=== PATIENT | female | born 1985 | race Caucasian/White ===

== ENCOUNTER 2017-08-16 05:15 | Day surgery (SDC) | payer OTHER ==
[~2017-08-16] VITALS: Ht 162.6 cm; Wt 122.7 kg
[2017-08-16] VITALS (7 sets, daily range): BP systolic 123–150; BP diastolic 66–96
--- NOTE | ~2017-08-16 | O ---
[facility] [place] [address] OPERATIVE REPORT Name: FRANKKYLIERAHEEL CHATTERJEE Room #: [facility].#: [id number] Admission: 08/16/17 Attend Phys: Jaswinder Brooks MD, F Discharge: 08/18/17 Date of : 81 Report #: [id number] THIS REPORT FOR: //name// CC: Fabienne Dominguez Brooks DATE OF SERVICE: 08/16/2017 SURGEON: Jaswinder Brooks MD [employer] ACCOUNT ASSISTANT: Zahida Vargas MD PREOPERATIVE DIAGNOSES: 1. Morbid obesity (body mass index 47.2). 2. Arthritis. 3. Gastroesophageal reflux disease. 4. Back pain. POSTOPERATIVE DIAGNOSES: 1. Morbid obesity (body mass index 47.2). 2. Hiatal hernia. 3. Arthritis. 4. Gastroesophageal reflux disease. 5. Back pain. PROCEDURES: 1. Laparoscopic sleeve gastrectomy with EGD. 2. Laparoscopic repair of a hiatal hernia with anterior cruroplasty. ANESTHESIA: General anesthesia and local anesthetic. ESTIMATED BLOOD LOSS: 5 mL. SPECIMEN: Lateral stomach. COMPLICATIONS: None appreciated. INDICATIONS FOR PROCEDURE: This is a 32-year-old female patient standing 5 feet 4 inches, weighing 275 pounds at her last visit with a BMI of 47.2. She has had difficulty with her weight for most of her life, worse with adulthood. She has tried numerous weight loss programs and plans including specialized diets, exercise, and tbbi-hoi-wuwponh medications. The most weight she has ever lost is 30-40 pounds with any single modality. Any amount of weight she has lost, she has quickly regained plus additional weight after stopping the modality. She has been cleared from a multidisciplinary standpoint and presents today for laparoscopic sleeve gastrectomy with EGD. [address] [address] OPERATIVE REPORT Name: RAHEEL KEATING Room #: DEP [facility] Reema#: [id number] Admission: 08/16/17 Attend Phys: Jaswinder Brooks MD, F Discharge: 08/18/17 Date of : 81 Report #: [id number] OPERATIVE FINDINGS: On EGD, the patient had a normal-appearing esophagus in GE junction. The stomach and duodenum to the third portion were normal without polyps, masses, diverticula, or ulcers. On retroflexion of the scope within the antrum of the stomach, a small hiatal hernia was visualized. The scope was then straightened and left within the stomach. This would serve as a 34-Tajik bougie. Laparoscopically, the patient had a fatty liver. Her colon and small-bowel in the surrounding area appeared otherwise normal with no other significant pathology seen other than a hiatal hernia. This was amenable to anterior repair with a single suture. The gastric sleeve staple line was located 1 cm lateral to the GE junction, 3 cm lateral to the incisura, and 4 cm lateral/proximal to the pylorus. There was no evidence for staple line leak whereby no air bubbles were seen after insufflating the gastric sleeve immediately after applying Tisseel to the staple line. The excised stomach held 1500 mL of fluid. DESCRIPTION OF PROCEDURE IN DETAIL: After the risks, benefits, and expectations of the operation were discussed in detail with the patient, informed consent was obtained. The patient was identified in the preoperative holding area. She was given IV antibiotics as documented in the chart in line with [facility] metrics. She was then taken to the operating room and she was placed in the supine position. SCDs were placed on the patient's bilateral lower extremities and pneumatic compression was initiated. The patient was then given IV sedation and she was intubated without incident. A bite block and orogastric tube were placed by anesthesia under my direction. A time-out was performed to identify the correct patient and procedure. The EGD scope was placed in the patient's oropharynx and advanced down the esophagus into the stomach and beyond the pylorus to the third portion of the duodenum. The scope was then slowly withdrawn. Within the antrum of the stomach, the scope was retroflexed and a retrograde view of the cardia was seen. The scope was then straightened and slightly withdrawn. The orogastric tube was placed to suction. The patient's abdomen was then prepped and draped in the standard sterile fashion. Local anesthetic was infiltrated into the skin and subcutaneous tissue in the left supraumbilical area where a small transverse incision was made. A 5-mm Visiport was placed intraperitoneally with a 0-degree angled laparoscope. Pneumoperitoneum was achieved with insufflation of carbon dioxide to 15 mmHg. A 30-degree angled laparoscope was then inserted. A right mid abdominal 15-mm port was then placed under direct visualization after local anesthetic was infiltrated into the skin and subcutaneous tissue and an appropriately sized incision was made. Additional 5-mm ports were placed in the left mid and left lateral abdomen under direct visualization using a similar technique. Local anesthetic was then infiltrated into the skin and subcutaneous tissues in the [address] [address] OPERATIVE REPORT Name: RAHEEL KEATING Room #: DEP [facility]#: [id number] Admission: 08/16/17 Attend Phys: Jaswinder Brooks MD, F Discharge: 08/18/17 Date of : 81 Report #: [id number] subxiphoid area where a small transverse incision was made. A 5-mm Visiport obturator was then advanced transfascially to create a passageway for the Akil liver retractor. The retractor was positioned intraabdominally and held in place with the [employer] apparatus. The patient was placed in the reverse Trendelenburg position. Operative findings are as noted above. The gastrosplenic ligament and short gastric vessels were divided with the ultrasonic dissector with appropriate traction on the stomach and good hemostasis. Dissection was carried up to the left j carlos of the diaphragm where a hiatal hernia was appreciated. The left mid abdominal port was upsized to a 12-mm port. The EndoStitch device was then used to place a single stitch to close the defect with an anterior cruroplasty. The gastrocolic ligament was then divided to an area that was 4 cm proximal/lateral to the pylorus. The gastroscope was then adjusted by anesthesia under my direction to lie against the lesser curvature of the stomach and serve as a 34-Tajik bougie. The orogastric tube was removed by anesthesia under my direction. The gastric sleeve was then created using the powered 45 mm HARPREET stapler. Each staple load was buttressed with Jillian-Strips. The initial two firings starting distally were black loads; the remaining staple firings were with green loads up to the GE junction. The excised stomach was then placed within the right upper quadrant of the abdomen and removed through the 15-mm port. An 0 PDS suture was placed with the Myron-Osvaldo laparoscopic fascial closure device. The suture was tagged and the port was replaced. The 12-mm port site fascial opening in the left mid abdomen was closed in similar fashion and the suture was tagged. All ports were replaced. 10 mL of Tisseel was then applied to the gastric sleeve staple line with the [employer] aerosolizer. Immediately after doing so, the gastroscope was used to gently insufflate carbon dioxide into the gastric sleeve and perform a leak test. No air bubbles were seen forming within the Tisseel. The scope was fully withdrawn. There was no endoluminal bleeding and the gastric sleeve contour was smooth. The Akil liver retractor was then removed under direct visualization. The sutures were tied under direct visualization to ensure no incorporation of intra-abdominal content. The abdominal cavity was then desufflated. Interrupted subcuticular 4-0 Monocryl sutures and Dermabond were used to close the skin incisions. The patient tolerated the procedure well. She was awakened, extubated, and taken to recovery room in stable condition with no apparent intraoperative complications. <ELECTRONICALLY SIGNED> By: Jaswinder Brooks MD, FACS 08/22/17 1811 [id number] Jaswinder Brooks MD, FACS /nt
--- NOTE | ~2017-08-16 | S ---
[facility] [place] [address] [place] [address] SURGICAL PATH RPT PROCEDURE Name: RAHEEL KO Room #: 411-P [facility] M.R.#: [id number] Admission: 08/16/17 Date of : 81 Discharge: Report #: [id number] Path Case #: [id number] PATHOLOGY REPORT COLLECTION DATE: 08/16/2017 RECEIVED DATE: 08/16/2017 SUBMITTING PHYS: Dr. Jaswinder Brooks OTHER PHYS: Dr. Fabienne Mix SPECIMEN(S) RECEIVED: A.Gastric sleeve * * * * * * * * * * * * FINAL DIAGNOSIS: Portion of stomach "gastric sleeve, partial gastrectomy": - Mild chronic reactive gastropathy. - There is no evidence of atypia or malignancy. (SHA:lisa; 08/17/2017) PATHOLOGIST: Thaddeus Penny M.D. REPORT ELECTRONICALLY SIGNED BY: Thaddeus Penny M.D. DATE/TIME: 08/17/2017 14:14 * * * * * * * * * * * * GROSS PATHOLOGY: The specimen is received in formalin, labeled "Raheel Ko and gastric sleeve". Received is a partial gastrectomy specimen with a stapled margin of resection measuring 26 x 5.5 x 3.5 cm in greatest dimensions. The serosal surface is glistening smooth spencer. Opening the specimen reveals spencer-red mucosa with usual folds, no polyps or masses identified. The specimen is submitted representatively in cassettes A1. (SWS; 08/16/2017) CLINICAL HISTORY: Morbid obesity INITIAL CPT CODE(S): A; 46500 Professional services performed by [facility] at [facility] [address], [place] [address] Technical services performed by [facility] at [address] [place] [id number]. [facility] [address] [place] [address] SURGICAL PATH RPT PROCEDURE Name: RAHEEL KO Room #: 411-P [facility] [place] Reema#: [id number] Admission: 08/16/17 Date of : 81 Discharge: Report #: [id number] Path Case #: [id number] [facility] [address] [address] PHONE: [phone] DIRECTOR: Yunior Bourne M.D. * * * END OF REPORT * * *
[~2017-08-16 05:15] MED LIST: BACTRIM 400-801 EACH PO; BACTROBAN CREAM30 G1 TOP; DEPO-PROVE150 MG/11 IM; NOHOMEMEDICATIONS; PRILOSEC OTC20 MG PO
[2017-08-17] VITALS (7 sets, daily range): BP systolic 129–160; BP diastolic 73–93
[2017-08-17 05:55] LABS: ABSOLUTE NEUTROPHILS 9.9 thou/uL (1.4-8.2); BASOPHILS 0.2 % (0.0-2.0); HEMATOCRIT 37.9 % (37.0-47.0); HEMOGLOBIN 12.5 gm/dL (12.0-15.0); LYMPHOCYTES 16.1 % (24.0-44.0); MCH 29.2 pg (26.0-34.0); MCHC 32.9 g/dL (28.0-37.0); MONOCYTES 8.4 % (1.0-8.0); PLATELET COUNT 285 thou/uL (150-400); POLYS 75.3 % (36.0-66.0); RBC 4.26 mil/uL (4.20-5.00); RDW 13.3 % (10.5-14.5); WBC 13.1 thou/uL (4.0-11.0)
[2017-08-17 06:13] LABS: CALCIUM 8.5 mg/dL (8.5-10.1); CREATININE 0.7 mg/dL (0.6-1.0); POTASSIUM 4.5 mmol/L (3.5-5.1)
[2017-08-17] MEDS ORDERED: HYDROCODONE-ACE15 ML PO (09:18)
[2017-08-18 04:00] VITALS: BP 117/70
[2017-08-18 08:00] VITALS: BP 140/72
[2017-08-18] MEDS ORDERED: ZOFRAN ODT4 MG DISSOLVE (08:55)
[2017-08-18 09:27] VITALS: BP 140/72
== END 2017-08-18 10:40 | disposition home or self-care (01) ==
LOC: OR 05:15 → TBA 05:15 → EDSTATUS 05:54 → UNDOADMIN 05:54 → OR 08:37 → EDSTATUS 09:33 → 4N 09:57 → TBA 10:57 → 4N 10:57 → OR 11:32
PROVIDERS: Surgery
DX: E66.01 Morbid (severe) obesity due to excess calories (principal); K44.9 Diaphragmatic hernia without obstruction or gangrene; M19.90 Unspecified osteoarthritis, unspecified site; K21.9 Gastro-esophageal reflux disease without esophagitis; M54.5 Low back pain; Z68.42 Body mass index [BMI] 45.0-49.9, adult
CPT/HCPCS: 10790; 50010; 50101; 50222; 50249; 50386; 50555; 50558; 50739; 50740; 50962; 51437; 52182; 52265; 53307; 53311; 54022; 54118; 55326; 56462; 56525; 56526; 56531; 57092; 62110; 62900; 70005

== ENCOUNTER 2017-11-17 16:32 | Emergency (ER) | payer OTHER ==
[~2017-11-17] VITALS: Ht 162.6 cm; Wt 103.4 kg
--- NOTE | ~2017-11-17 | EKG ---
[address] [address] ELECTROCARDIOGRAM REPORT Name: RAHEEL KEATING [id number] Admission: 11/17/17 Attend Phys: Discharge: 11/17/17 Date of : 81 Report #: [id number] THIS REPORT FOR: //name// [facility] ED Test Date: 2017-11-17 Test Time: 17:00:21 Pat Name: RAHEEL KEATING Department: Room: Gender: F Research Program Assistant: KKODJOVI : 1985 Requested By: Alo Mena Order Number: [id number] MD: Florentin Cornell Measurements Intervals Vian Rate: 64 P: 22 UT: 130 QRS: 14 QRSD: 77 T: 11 QT: 398 QTc: 411 Interpretive Statements Sinus rhythm No significant abnormality No previous ECG available for comparison Electronically Signed On 11-18-2017 14:04:26 CDT by Florentin Cornell [email or web address] <ELECTRONICALLY SIGNED> By: Florentin Cornell MD, [facility] 11/18/17 1404 1700 1700 Florentin Cornell MD, FACC /EPI
[~2017-11-17 16:32] MED LIST changes: +HYDROCODONE-ACE15 ML PO; +ZOFRAN ODT4 MG DISSOLVE
[2017-11-17 16:33] VITALS: BP 155/95
[2017-11-17] MEDS ORDERED: VALIUM5 MG PO (17:06)
== END 2017-11-17 17:14 | disposition home or self-care (01) ==
LOC: ER 16:32
DX: M54.6 Pain in thoracic spine (principal); K21.9 Gastro-esophageal reflux disease without esophagitis; Z88.6 Allergy status to analgesic agent; Z90.49 Acquired absence of other specified parts of digestive tract

== ENCOUNTER 2018-11-03 15:22 | Emergency (ER) | payer OTHER ==
[~2018-11-03] VITALS: Ht 162.6 cm; Wt 73.9 kg
[~2018-11-03 15:22] MED LIST changes: +VALIUM5 MG PO
[2018-11-03 16:41] VITALS: BP 140/92
== END 2018-11-03 16:41 | disposition home or self-care (01) ==
LOC: ER 15:22
DX: J06.9 Acute upper respiratory infection, unspecified (principal); F17.200 Nicotine dependence, unspecified, uncomplicated; K21.9 Gastro-esophageal reflux disease without esophagitis; Z88.5 Allergy status to narcotic agent; Z90.89 Acquired absence of other organs; Z90.49 Acquired absence of other specified parts of digestive tract

== ENCOUNTER 2018-12-02 15:30 | Emergency (ER) | payer OTHER ==
[~2018-12-02] VITALS: Ht 162.6 cm; Wt 71.7 kg
[2018-12-02] MEDS ORDERED: COLACE100 MG PO (16:14)
[2018-12-02 16:16] LABS: ABSOLUTE NEUTROPHILS 6.2 thou/uL (1.4-8.2); BASOPHILS 0.9 % (0.0-2.0); EOSINOPHILS 1.1 % (0.0-3.0); HEMATOCRIT 40.4 % (37.0-47.0); HEMOGLOBIN 13.7 gm/dL (12.0-15.0); LYMPHOCYTES 33.5 % (24.0-44.0); MCH 31.1 pg (26.0-34.0); MCHC 33.9 g/dL (28.0-37.0); MCV 91.7 fL (80.0-100.0); MONOCYTES 7.9 % (1.0-8.0); PLATELET COUNT 266 thou/uL (150-400); POLYS 56.6 % (36.0-66.0); RBC 4.41 mil/uL (4.20-5.00); RDW 12.7 % (10.5-14.5)
[2018-12-02 16:20] LABS: ANION GAP 7 mmol/L (7-16); BUN 20 mg/dL (7-18); CALCIUM 9.5 mg/dL (8.5-10.1); CHLORIDE 106 mmol/L (98-107); CO2 27 mmol/L (21-32); CREATININE 0.7 mg/dL (0.6-1.0); GLUCOSE 97 mg/dL (74-106); POTASSIUM 3.8 mmol/L (3.5-5.1); SODIUM 140 mmol/L (136-145)
[2018-12-02 16:29] LABS: ALBUMIN 4.1 g/dL (3.4-5.0); SGOT 13 U/L (15-37); SGPT 23 U/L (30-65); TOTAL BILIRUBIN 0.2 mg/dL (<0.1-1.0); TROPONIN-I <0.06 ng/mL (<0.06)
[2018-12-02 17:44] LABS: AMP/METHAMP Negative (Negative); BARBITURATES Negative (Negative); BENZODIAZEPINES Negative (Negative); COCAINE Negative (Negative); METHADONE Negative (Negative); OPIATES Negative (Negative); PCP Negative (Negative)
[2018-12-02] MEDS ORDERED: NORFLEX100 MG PO (18:24)
[2018-12-02] MEDS ORDERED: NAPROXEN375 MG PO (18:24)
[2018-12-02 18:32] VITALS: BP 112/65
[2018-12-02] MEDS ORDERED: PRILOSEC 20 MG20 MG PO (18:39)
--- NOTE | 2018-12-03 16:40 | EKG ---
[place] [address] [facility] [place] [address] ELECTROCARDIOGRAM REPORT Name: RAHEEL KEATING [facility] [id number] ������������������ Admission: 12/02/18 ������������������ Attend Phys: Discharge: 12/02/18 ������������������ Date of : 81 Report #: [id number] ����������������������������������������������������������������� [id number] THIS REPORT FOR: //name// [facility] ED Test Date: 2018-12-02 Test Time: 16:04:29 Pat Name: RAHEEL KEATING Department: Room: Gender: F Analysis Lead: [facility] : 1985 Requested By: [place] Order Number: [id number] MD: Florentin Cornell Measurements Intervals [place] Rate: 70 P: 29 [place]: 132 QRS: 34 QRSD: 86 T: 27 QT: 362 QTc: 391 Interpretive Statements Sinus rhythm Normal tracing Compared to ECG 11/17/2017 17:00:21 No significant changes Electronically Signed On 12-03-2018 16:39:55 CDT by Florentin Cornell [email or web address] ��������������������������������������������� <ELECTRONICALLY SIGNED> ���������������������������������������� By: Florentin Cornell MD, [facility] ��������������������������������������������� 12/03/18 1639 1604 1604 Florentin Cornell MD, FACC /EPI
== END 2018-12-02 18:34 | disposition home or self-care (01) ==
LOC: ER 15:30
PROVIDERS: Emergency Medicine
DX: K21.9 Gastro-esophageal reflux disease without esophagitis (principal); M54.6 Pain in thoracic spine; F17.210 Nicotine dependence, cigarettes, uncomplicated; Z88.5 Allergy status to narcotic agent; Z90.89 Acquired absence of other organs; Z90.49 Acquired absence of other specified parts of digestive tract

== ENCOUNTER → 2018-12-27 | Outpatient (CLI) | payer OTHER ==
[~2018-12-27] MED LIST changes: +COLACE100 MG PO; +NAPROXEN375 MG PO; +NORFLEX100 MG PO; +PRILOSEC 20 MG20 MG PO
== END ==
LOC: RAD 07:53
DX: R10.30 Lower abdominal pain, unspecified (principal); K22.4 Dyskinesia of esophagus; Z90.49 Acquired absence of other specified parts of digestive tract